=== PATIENT | female | born 1935 | race Caucasian/White ===

== ENCOUNTER 2016-08-01 10:56 | Outpatient (CLI) | payer MEDICARE, BC ==
[2012-10-27 10:12] VITALS: O2SAT 94
== END 2016-08-01 10:57 | disposition home or self-care (01) | DRG 566 ==
LOC: CONVCARE 10:56
PROVIDERS: ATTEND Orthopaedic Surgery
DX: Z96.651 Presence of right artificial knee joint (principal)
CPT/HCPCS: 73562

== ENCOUNTER 2017-12-25 15:03 | Outpatient (CLI) | payer MEDICARE, BC ==
[2012-10-27 10:12] VITALS: O2SAT 94
== END 2017-12-25 15:04 | disposition home or self-care (01) | DRG 561 ==
LOC: CONVCARE 15:03
PROVIDERS: ATTEND Orthopaedic Surgery
DX: Z47.1 Aftercare following joint replacement surgery (principal); Z96.651 Presence of right artificial knee joint
CPT/HCPCS: 73562